=== PATIENT | male | born 1940 | race Caucasian/White ===

== ENCOUNTER 2019-07-16 10:25 | Day surgery (SDC) | payer OTHER ==
[2019-07-11 14:22] VITALS: BMI 26.4
[~2019-07-16 10:25] MED LIST: LACTATED RINGERS SOLUTION 1,000 ML IV SCH; ONDANSETRON 4 MG/2 ML VIAL IVPUSH PRN
[2019-07-16 12:40] VITALS: TEMP 97.6
[2019-07-16 12:57] VITALS: BP 134/61; PULSE 64
== END 2019-07-16 13:01 | disposition home or self-care (01) ==
LOC: FASU-ENDO 10:25
PROVIDERS: ATTEND Internal Medicine Gastroenterology
PROC: 0DJD8ZZ Inspection of Lower Intestinal Tract, Via Natural or Artificial Opening Endoscopic (ICD-10-PCS; principal; 2019-07-16 11:51)
DX: Z12.11 Encounter for screening for malignant neoplasm of colon (principal)